=== PATIENT | male | born 1950 | race Caucasian/White ===

== ENCOUNTER → 2017-03-10 | Outpatient (CLI) | payer OTHER ==
[~2017-03-10] MED LIST: ASPI-496 PO; ETAN50DI SC; LOSA50TA6 PO; METH2.5T PO; METOPROLOL SUCC PO; OXYC1TAB7 PO; REGADENOSON 0.4 MG/5 ML SYRINGE ONE; TAMS0.4C2 PO
== END | disposition home or self-care (01) ==
LOC: CVU 09:15
PROVIDERS: ATTEND Internal Medicine Cardiovascular Disease
DX: I34.0 Nonrheumatic mitral (valve) insufficiency (principal); I07.1 Rheumatic tricuspid insufficiency; Z86.39 Personal history of other endocrine, nutritional and metabolic disease
CPT/HCPCS: C8929; J2785; 78452; 93017; A9502

== ENCOUNTER → 2017-03-11 | Outpatient (CLI) | payer OTHER ==
[~2017-03-11] MED LIST changes: -REGADENOSON 0.4 MG/5 ML SYRINGE ONE
== END ==
LOC: CVU 09:37
PROVIDERS: ATTEND Internal Medicine Cardiovascular Disease
DX: Z02.9 Encounter for administrative examinations, unspecified (principal)

== ENCOUNTER → 2017-11-02 | Outpatient (CLI) | payer OTHER ==
[~2017-11-02] MED LIST changes: -ETAN50DI SC; +ETAN50DI2 SC
== END | disposition home or self-care (01) ==
LOC: CFH 10:33
PROVIDERS: ATTEND Family Medicine
DX: R35.8 Other polyuria (principal)
CPT/HCPCS: 76770

== ENCOUNTER → 2018-06-06 | Outpatient (CLI) | payer MEDICARE | END | disposition home or self-care (01) | LOC: CFH 12:30 | PROVIDERS: ATTEND Registered Nurse | DX: Z12.2 Encounter for screening for malignant neoplasm of respiratory organs (principal); I89.8 Other specified noninfective disorders of lymphatic vessels and lymph nodes; Z87.891 Personal history of nicotine dependence | CPT/HCPCS: G0297 ==

== ENCOUNTER → 2018-07-12 | Outpatient (CLI) | payer MEDICARE ==
[~2018-07-12] MED LIST changes: -LOSA50TA6 PO; +LOSA50TA7 PO
== END | disposition home or self-care (01) ==
LOC: CVU 09:44
PROVIDERS: ATTEND Nurse Practitioner Family
DX: I08.2 Rheumatic disorders of both aortic and tricuspid valves (principal); I10 Essential (primary) hypertension
CPT/HCPCS: C8929; Q9957